=== PATIENT | male | born 1995 | race Caucasian/White ===

== ENCOUNTER 2017-10-30 22:33 | Emergency (ER) | payer MEDICAID, OTHER ==
[2017-10-30 23:27] VITALS: BP 119/50
[2017-10-30] MEDS ORDERED: TYLENOL PO ONE (23:28)
--- NOTE | 2017-10-31 04:17 | Emergency Department Report ---
Abscess Boil HPI - HPI Chief Complaint: Skin/Abscess/Foreign Body Stated Complaint: ABSCESS TO RT BUTOCKS Time Seen by Provider: 10/31/17 04:00 Duration: 3 Days Location: Sacral/Pilonidal Severity: Moderate History: Yes Purulent Drainage, Yes Previous History, No Fever, No Pain, No Numbness, No Foreign Body, No Insect Bite HPI: 22-year-old Citizen Of The [place] male comes in complaining of an abscess in between his right buttocks. He has noticed it for the last 3 days and reports that it feels very painful pressure increased pain with sitting. He reports that while being here he sat on the toilet and the abscess burst and fluid ran into the toilet. Patient reports that the pain has improved somewhat with the relief of the abscess. Home Medications: Previous Rx's Medication Instructions Recorded Last Taken Type Ibuprofen [Motrin 600 MG tab] 600 mg PO Q8H PRN #40 tablet 10/31/17 Unknown Rx Sulfamethoxazole/Trimethoprim 1 each PO BID #20 tablet 10/31/17 Unknown Rx [Bactrim DS TAB] Allergies/Adverse Reactions: Allergies Allergy/AdvReac Type Severity Reaction Status Date / Time No Known Allergies Allergy Verified 08/27/15 10:34 ED Review of Systems ROS: Stated complaint: ABSCESS TO RT BUTOCKS Other details as noted in HPI Constitutional: denies: chills, fever Skin: lesions ( on buttock) ED Past Medical Hx - Past Medical History Previous Medical History?: No - Surgical History Past Surgical History?: No - Social History Smoking Status: Current Every Day Smoker Substance Use Type: None - Medications Home Medications: Home Medications Medication Instructions Recorded Confirmed Last Taken Type Ibuprofen [Motrin 600 MG tab] 600 mg PO Q8H PRN #40 tablet 10/31/17 Unknown Rx Sulfamethoxazole/Trimethoprim 1 each PO BID #20 tablet 10/31/17 Unknown Rx [Bactrim DS TAB] ED Abscess Boil Physical Exam - Exam General: Vital signs noted. No distress. Alert and acting appropriately. Size: 2 cm Exam: Yes Tenderness, Yes Fluctuance, Yes Surrounding Cellulites/Erythema, Yes Normal Neurologic Exam, Yes Normal Circulation, No Lymphangitis, No Crepitation , No Heart Murmur I & D Note - I & D Note I & D Note: Not performed ED Course Vital Signs 06/26/18 06/26/18 23:24 23:29 Temperature 98.3 F Pulse Rate 73 Respiratory 18 18 Rate Blood Pressure 119/50 Critical care attestation.: If time is entered above; I have spent that time in minutes in the direct care of this critically ill patient, excluding procedure time. ED Medical Decision Making - Medical Decision Making Patient has been evaluated by this provider fast track. Patient was given a [place] for pain management. Abscess had artery started to drain so I did not need to incision and drained the abscess. Patient had purulent foul-smelling discharge on gauze. Discussed patient I will place him on antibiotics and pain medication. Discussed with patient that he should try using Dial soap and or chlorhexidine surgical scrub to bathe between his legs growing in but ox as well as on the arm to prevent overgrowth of bacteria. Discussed patient to complete antibiotics take pain medication and if symptoms persists or gets worse to follow up with a primary care provider. ED Disposition Clinical Impression: Abscess and cellulitis of gluteal region Disposition: DC-01 TO HOME OR SELFCARE Is pt being admited?: No Does the pt Need Aspirin: No Condition: Stable Instructions: Abscess (ED) Additional Instructions: Please use chlorhexidine surgical scrub to bathe at least twice a week as well as use Dial antibacterial soap. You can use warm compresses to the abscess area 4 times a day. As well as warm hot baths. Complete antibiotics as prescribed take her pain medication as needed and follow up with a primary care provider if symptoms persist or gets worse. Prescriptions: Ibuprofen [Motrin 600 MG tab] 600 mg PO Q8H PRN #40 tablet PRN Reason: Pain Sulfamethoxazole/Trimethoprim [Bactrim DS TAB] 1 each PO BID #20 tablet Referrals: MARZENA SALINAS [Other] - 3-5 Days Forms: Work/School Release Form(ED)
[2017-10-31] MEDS ORDERED: NORCO 5/325 PO ONE (04:56)
[2017-10-31] MEDS ORDERED: TYLENOL ONE (05:00)
[2017-10-31] MEDS ORDERED: NORCO 5/325 ONE (05:00)
== END 2017-10-31 05:23 | disposition home or self-care (01) ==
LOC: ED 22:33
DX: L02.31 Cutaneous abscess of buttock (principal); F17.200 Nicotine dependence, unspecified, uncomplicated
CPT/HCPCS: 99282

== ENCOUNTER 2017-11-06 05:00 | Emergency (ER) | payer SELFPAY ==
[2017-11-06 05:20] VITALS: BP 110/63
[2017-11-06 05:39] LABS: Basophils % (Auto) 0.3 % (0.0-1.8); Eosinophils % (Auto) 0.4 % (0.0-4.3); Hematocrit 44.3 % (35.5-45.6); Hemoglobin 14.9 gm/dl (11.8-15.2); Lymphocytes # (Auto) 1.4 K/mm3 (1.2-5.4); Lymphocytes % (Auto) 13.9 % (13.4-35.0); Mean Corpuscular HGB Conc 34 % (32-34); Mean Corpuscular Hemoglobin 30 pg (28-32); Mean Corpuscular Volume 90 fl (84-94); Monocytes # (Auto) 0.9 K/mm3 (0.0-0.8); Monocytes % (Auto) 8.8 % (0.0-7.3); Platelet Count 217 K/mm3 (140-440); Red Blood Count 4.94 M/mm3 (3.65-5.03)
[2017-11-06 06:06] LABS: Alanine Aminotransferase 26 units/L (7-56); Albumin 4.3 g/dL (3.9-5); BUN/Creatinine Ratio 14; Blood Urea Nitrogen 11 mg/dL (9-20); Calcium 9.5 mg/dL (8.4-10.2); Hemolysis Index 1
[2017-11-06 06:48] LABS: Bilirubin,Urine NEG (Negative); Blood,Urine NEG (Negative); Color,Urine Yellow (Yellow); Protein,Urine <15 mg/dL mg/dL (Negative); Urobilinogen,Urine < 2.0 mg/dL (<2.0); WBC,Urine < 1.0 /HPF (0.0-6.0)
--- NOTE | 2017-11-06 08:15 | Emergency Department Report ---
ED Abdominal Pain HPI - General Chief Complaint: Abdominal Pain Stated Complaint: ABDOMINAL PAIN Time Seen by Provider: 11/06/17 07:57 Source: patient, EMS Mode of arrival: Ambulatory Limitations: No Limitations - History of Present Illness Initial Comments: This is a 22 y.o. male that presents with sharp lower abdominal pain radiating to penis. Patient reports symptoms started yesterday at 1999. Patient reports pain be her worse with attempted to have have a bowel movement. Pain is sharp and radiating to right Flank and penis. Patient reports common into emergency room on October 30 for abscesses to buttock and started on Bactrim antibiotics. The abdominal pain started when he started antibiotics with nausea. He was having diarrhea. The last bowel movement was Sunday and it was watery with a weird smell. Denies chest pain, fever, frequency, urgency, dysuria, testicular pain or swelling. MD Complaint: abdominal pain -: Last night Location: diffuse Radiation: R flank Migration to: other (penile pain) Severity: moderate Severity scale (0 -10): 7 Quality: stabbing, sharp Consistency: intermittent Improves With: nothing Worsens With: bowel movement Context: recent antibiotic use Associated Symptoms: nausea, diarrhea. denies: vomiting, fever, chills, constipation, dysuria, hematemesis, hematochezia, melena, hematuria, anorexia, syncope - Related Data Previous Rx's Medication Instructions Recorded Last Taken Type Ibuprofen [Motrin 600 MG tab] 600 mg PO Q8H PRN #40 tablet 10/31/17 Unknown Rx Sulfamethoxazole/Trimethoprim 1 each PO BID #20 tablet 10/31/17 Unknown Rx [Bactrim DS TAB] Levofloxacin [Levaquin TAB] 500 mg PO QDAY #5 tablet 11/06/17 Unknown Rx Allergies Allergy/AdvReac Type Severity Reaction Status Date / Time No Known Allergies Allergy Verified 11/06/17 05:13 ED Review of Systems ROS: Stated complaint: ABDOMINAL PAIN Other details as noted in HPI Constitutional: denies: chills, fever Respiratory: denies: cough, shortness of breath, wheezing Cardiovascular: denies: chest pain, palpitations Gastrointestinal: abdominal pain, nausea. denies: vomiting, diarrhea, constipation Genitourinary: denies: urgency, dysuria, frequency, hematuria, discharge, testicular pain, testicular mass Musculoskeletal: back pain (right flank). denies: joint swelling, arthralgia Skin: denies: rash, lesions Neurological: denies: headache, weakness, numbness, paresthesias Psychiatric: denies: anxiety, depression ED Past Medical Hx - Past Medical History Additional medical history: gastritis - Surgical History Past Surgical History?: No - Social History Smoking Status: Current Some Day Smoker Substance Use Type: None - Medications Home Medications: Home Medications Medication Instructions Recorded Confirmed Last Taken Type Ibuprofen [Motrin 600 MG tab] 600 mg PO Q8H PRN #40 tablet 10/31/17 Unknown Rx Sulfamethoxazole/Trimethoprim 1 each PO BID #20 tablet 10/31/17 Unknown Rx [Bactrim DS TAB] Levofloxacin [Levaquin TAB] 500 mg PO QDAY #5 tablet 11/06/17 Unknown Rx ED Physical Exam - General Limitations: No Limitations General appearance: alert, in no apparent distress - Respiratory Respiratory exam: Present: normal lung sounds bilaterally. Absent: respiratory distress - Cardiovascular Cardiovascular Exam: Present: regular rate, normal rhythm. Absent: systolic murmur, diastolic murmur, rubs, gallop - GI/Abdominal GI/Abdominal exam: Present: soft, tenderness (RLQ, LLQ), normal bowel sounds. Absent: distended, guarding, rebound, rigid, organomegaly, mass, hernia - exam: Present: normal inspection, circumcision. Absent: testicular tenderness, urethral discharge, scrotal swelling, vertical testicular lie External exam: Present: normal external exam. Absent: erythema, swelling, lesions, lacerations, ecchymosis, bleeding - Neurological Exam Neurological exam: Present: alert, oriented X3 - Psychiatric Psychiatric exam: Present: normal affect, normal mood - Skin Skin exam: Present: warm, dry, intact, normal color. Absent: rash ED Course Vital Signs 11/06/17 05:13 Temperature 99.2 F Pulse Rate 78 Respiratory 18 Rate Blood Pressure 110/63 O2 Sat by Pulse 98 Oximetry ED Medical Decision Making - Lab Data Result diagrams: 11/06/17 05:20 11/06/17 05:20 - Radiology Data Radiology results: report reviewed CT ABDOMEN PELVIS WITHOUT CONTRAST: HISTORY: Diffuse abdominal pain. COMPARISON: 02/25/13. TECHNIQUE: Helical CT in 1.25mm intervals without IV contrast. Sagittal and coronal reconstructions. FINDINGS: Lung bases: Normal. Liver: Normal. Biliary system: Normal. Pancreas: Normal. Spleen: Normal. Kidneys/ureters/bladder: Normal. Adrenal glands: Normal. Aorta: Normal. Intestines: Normal. Appendix: Normal. Pelvic viscera: Normal. Ascites: None. Adenopathy: None. Musculoskeletal: Normal. IMPRESSION: Unremarkable CT scan of the abdomen and pelvis without contrast. - Medical Decision Making 22 y.o. male that presents with abdominal pain radiating to right flank and penis that started last night. Patient examined by me, slightly distressed. Given morphine 2 mg IM once. Vitals normal. Obtained CMP, CBC, UA, and CT of abdomen and pelvis. All labs unremarkable. CT read by radiologist and no acute findings. Diarrhea has resolved chronic, unable to get stool to r/o c- diff. Patient informed of results. Instructed to stop taking bactrim and start vancomycin 500 mg po daily for 5 days for gastritis and possible coverage of C. difficile. If diarrhea restarts take loperamide [id number] for symptom control. Discharged home. Follow up with [facility] in 48-72 hours. Critical care attestation.: If time is entered above; I have spent that time in minutes in the direct care of this critically ill patient, excluding procedure time. ED Disposition Clinical Impression: Abdominal pain, acute, generalized, Gastroenteritis Disposition: - TO HOME OR SELFCARE Is pt being admited?: No Does the pt Need Aspirin: No Condition: Stable Instructions: Gastroenteritis (ED), Acute Nausea and Vomiting (ED), Traveler's Diarrhea (ED) Additional Instructions: Frequent hand washing is important to reduce spread. Prompt disinfection of contaminated surfaces with household chlorine bleach- based pediatric sports medicine specialist and washing of soiled clothing and bedding should be advised. If food or water is thought to be contaminated, it should be avoided. Increase fluid intake. Take loperamide [id number] if diarrhea restarts. Drinks high in sugars such as carbonated soft drinks, fruit juice, and highly sugared liquids should be avoided. Follow-up with a primary care provider [facility] in 2-3 days. Prescriptions: Levofloxacin [Levaquin TAB] 500 mg PO QDAY #5 tablet Referrals: [facility] [Outside] - 3-[address] [facility] [Outside] - 3-5 Days [facility] [Outside] - 3-5 Days Forms: Work/School Release Form(ED) Time of Disposition: 09:49 Print Language: CITIZEN OF [place]
--- NOTE | 2017-11-06 08:46 | Cat Scan Report ---
CT ABDOMEN PELVIS WITHOUT CONTRAST: HISTORY: Diffuse abdominal pain. COMPARISON: 02/25/13. TECHNIQUE: Helical CT in 1.25mm intervals without IV contrast. Sagittal and coronal reconstructions. FINDINGS: Lung bases: Normal. Liver: Normal. Biliary system: Normal. Pancreas: Normal. Spleen: Normal. Kidneys/ureters/bladder: Normal. Adrenal glands: Normal. Aorta: Normal. Intestines: Normal. Appendix: Normal. Pelvic viscera: Normal. Ascites: None. Adenopathy: None. Musculoskeletal: Normal. IMPRESSION: Unremarkable CT scan of the abdomen and pelvis without contrast.
[2017-11-06] MEDS ORDERED: MORPHINE IV ONE (09:03)
[2017-11-06] MEDS ORDERED: MORPHINE IM ONE (09:07)
== END 2017-11-06 09:53 | disposition home or self-care (01) ==
LOC: ED 05:00
DX: K52.9 Noninfective gastroenteritis and colitis, unspecified (principal); F17.200 Nicotine dependence, unspecified, uncomplicated
CPT/HCPCS: 36415; 74176; 80053; 81001; 85025; 96372; 99284; J2270

== ENCOUNTER 2018-08-28 23:03 | Emergency (ER) | payer OTHER ==
[2018-08-28 23:49] VITALS: BP 122/57
--- NOTE | 2018-08-29 00:28 | XRay Report ---
PROCEDURE: XR FOOT 2V LT TECHNIQUE: AP and lateral views of the left foot were submitted. HISTORY: pain and swelling left foot. COMPARISONS: None FINDINGS: There is no evidence of fracture, dislocation, or soft tissue injury. Along the posterior margin of t he distal metaphysis of the tibia is a small benign exostosis. IMPRESSION: No acute findings.. This document is electronically signed by Mario Gutierrez MD., August 29 2018 12:26:24 AM ET
--- NOTE | 2018-08-29 02:43 | Emergency Department Report ---
- General Chief complaint: Puncture Wound Stated complaint: LEFT FOOT DISCOLORED Source: patient Mode of arrival: Ambulatory Limitations: No Limitations - History of Present Illness Initial comments: This is a 23-year-old male Presents to the emergency room with possible foreign objects to left foot. Patient states he was walking inside of his sister's trailer on Sunday and stepped on a splinter. He attempted to remove but on successful. Patient states he can feel splinter below the skin. Patient states when he woke up the next morning in the bottom of his foot was swollen. He denies numbness or tingling, paresthesias, or weakness, redness or warmth to the area. complaint: foreign body Onset/Timin -: days(s) Tetanus Up to Date: no Location: L foot Severity: moderate Severity scale (0 -10): 6 Quality: aching Consistency: intermittent Improves with: none Worsens with: other (weight bearing) Context: none Associated symptoms: denies other symptoms Treatments Prior to Arrival: none - Related Data Previous Rx's Medication Instructions Recorded Last Taken Type Ibuprofen [Motrin 600 MG tab] 600 mg PO Q8H PRN #40 tablet 10/31/17 Unknown Rx Sulfamethoxazole/Trimethoprim 1 each PO BID #20 tablet 10/31/17 Unknown Rx [Bactrim DS TAB] levoFLOXacin [Levaquin TAB] 500 mg PO QDAY #5 tablet 11/06/17 Unknown Rx Sulfamethoxazole/Trimethoprim 1 each PO BID #14 tablet 08/29/18 Unknown Rx [Bactrim DS TAB] Allergies Allergy/AdvReac Type Severity Reaction Status Date / Time No Known Allergies Allergy Verified 11/06/17 05:13 Abscess Boil HPI - HPI Chief Complaint: Puncture Wound Stated Complaint: LEFT FOOT DISCOLORED Home Medications: Previous Rx's Medication Instructions Recorded Last Taken Type Ibuprofen [Motrin 600 MG tab] 600 mg PO Q8H PRN #40 tablet 10/31/17 Unknown Rx Sulfamethoxazole/Trimethoprim 1 each PO BID #20 tablet 10/31/17 Unknown Rx [Bactrim DS TAB] levoFLOXacin [Levaquin TAB] 500 mg PO QDAY #5 tablet 11/06/17 Unknown Rx Sulfamethoxazole/Trimethoprim 1 each PO BID #14 tablet 08/29/18 Unknown Rx [Bactrim DS TAB] Allergies/Adverse Reactions: Allergies Allergy/AdvReac Type Severity Reaction Status Date / Time No Known Allergies Allergy Verified 11/06/17 05:13 ED Review of Systems ROS: Stated complaint: LEFT FOOT DISCOLORED Other details as noted in HPI Constitutional: denies: chills, fever Respiratory: denies: cough, shortness of breath, wheezing Cardiovascular: denies: chest pain, palpitations Gastrointestinal: denies: abdominal pain, nausea, diarrhea Skin: lesions (sensation of foreign object in the left plantar foot). denies: rash Neurological: denies: headache, weakness, paresthesias Psychiatric: denies: anxiety, depression ED Past Medical Hx - Past Medical History Previous Medical History?: Yes Additional medical history: gastritis - Surgical History Past Surgical History?: No - Social History Smoking Status: Never Smoker Substance Use Type: None - Medications Home Medications: Home Medications Medication Instructions Recorded Confirmed Last Taken Type Ibuprofen [Motrin 600 MG tab] 600 mg PO Q8H PRN #40 tablet 10/31/17 Unknown Rx Sulfamethoxazole/Trimethoprim 1 each PO BID #20 tablet 10/31/17 Unknown Rx [Bactrim DS TAB] levoFLOXacin [Levaquin TAB] 500 mg PO QDAY #5 tablet 11/06/17 Unknown Rx Sulfamethoxazole/Trimethoprim 1 each PO BID #14 tablet 08/29/18 Unknown Rx [Bactrim DS TAB] ED Physical Exam - General Limitations: No Limitations General appearance: alert, in no apparent distress - Respiratory Respiratory exam: Present: normal lung sounds bilaterally. Absent: respiratory distress - Cardiovascular Cardiovascular Exam: Present: regular rate, normal rhythm. Absent: systolic murmur, diastolic murmur, rubs, gallop - GI/Abdominal GI/Abdominal exam: Present: soft, normal bowel sounds - Neurological Exam Neurological exam: Present: alert, oriented X3 - Psychiatric Psychiatric exam: Present: normal affect, normal mood - Skin Skin exam: Present: warm, dry, intact, normal color, other (palpable foreign object less than 1/2 cm over dorsal second metatarsal, mild swelling and erythema). Absent: rash ED Course Vital Signs 08/28/18 23:42 Temperature 98.5 F Pulse Rate 69 Respiratory 18 Rate Blood Pressure 122/57 O2 Sat by Pulse 99 Oximetry ED Medical Decision Making - Radiology Data Radiology results: report reviewed PROCEDURE: XR FOOT 2V LT TECHNIQUE: AP and lateral views of the left foot were submitted. HISTORY: pain and swelling left foot. COMPARISONS: None FINDINGS: There is no evidence of fracture, dislocation, or soft tissue injury. Along the posterior margin of the distal metaphysis of the tibia is a small benign exostosis. IMPRESSION: No acute findings.. - Medical Decision Making Patient examined by me. X-ray of left foot are obtained and report reviewed by myself. Patient is non-toxic appearing and stable. No acute findings on x-ray but foreign object on focal exam. To remove foreign object, The area was prepared and draped in the usual, sterile manner. The site was anesthetized with 2% lidocaine without epinephrine, 1 mL. A linear incision along the local skin lines was made and the splinter was removed with forceps. The wound was irrigated with normal saline 8 mL. Given Boostrix vaccine. Physical examination is susceptible of cellulites of left foot. Discharged home for outpatient treatment with bactrim. Discussed ER care plan with patient. Patient agreed with plan. F/U with PCP. Critical care attestation.: If time is entered above; I have spent that time in minutes in the direct care of this critically ill patient, excluding procedure time. ED Disposition Clinical Impression: Foreign body foot/toe, Cellulitis of foot Disposition: DC-01 TO HOME OR SELFCARE Is pt being admited?: No Does the pt Need Aspirin: No Condition: Stable Instructions: Cellulitis (ED), Soft Tissue Foreign Body (ED) Prescriptions: Sulfamethoxazole/Trimethoprim [Bactrim DS TAB] 1 each PO BID #14 tablet Referrals: [facility] [Outside] - 3-5 Days [facility] [Outside] - 3-5 Days [facility] [Outside] - 3-5 Days Forms: Work/School Release Form(ED) Time of Disposition: 03:25
[2018-08-29] MEDS ORDERED: BOOSTRIX IM ONE (03:05)
== END 2018-08-29 03:51 | disposition home or self-care (01) ==
LOC: ED 23:03
DX: S90.852A Superficial foreign body, left foot, initial encounter (principal); L03.116 Cellulitis of left lower limb; W45.8XXA Other foreign body or object entering through skin, initial encounter; Y93.89 Activity, other specified; Y92.89 Other specified places as the place of occurrence of the external cause; Y99.8 Other external cause status
CPT/HCPCS: 90471; 90715

== ENCOUNTER 2019-07-09 08:24 | Emergency (ER) | payer SELFPAY ==
[2019-07-09 08:32] VITALS: BP 129/87
--- NOTE | 2019-07-09 10:45 | Emergency Department Report ---
- General Chief Complaint: Upper Respiratory Infection Stated Complaint: THROAT, EYE AND THROAT PAIN Time Seen by Provider: 07/09/19 09:48 Source: patient Mode of arrival: Ambulatory Limitations: No Limitations - History of Present Illness MD Complaint: cough, rhinorrhea, nasal congestion -: Sudden Severity: mild Consistency: constant Improves With: nothing Worsens With: nothing Context: sick contacts Associated Symptoms: chills, rhinorrhea, nasal congestion, cough. denies: myalgias, abdominal pain, vomiting, diarrhea, right sweats, weight loss - Related Data Previous Rx's Medication Instructions Recorded Last Taken Type Ibuprofen [Motrin 600 MG tab] 600 mg PO Q8H PRN #40 tablet 10/31/17 Unknown Rx Sulfamethoxazole/Trimethoprim 1 each PO BID #20 tablet 10/31/17 Unknown Rx [Bactrim DS TAB] levoFLOXacin [Levaquin TAB] 500 mg PO QDAY #5 tablet 11/06/17 Unknown Rx Sulfamethoxazole/Trimethoprim 1 each PO BID #14 tablet 08/29/18 Unknown Rx [Bactrim DS TAB] Allergies Allergy/AdvReac Type Severity Reaction Status Date / Time No Known Allergies Allergy Verified 11/06/17 05:13 ED Review of Systems ROS: Stated complaint: THROAT, EYE AND THROAT PAIN Other details as noted in HPI Comment: All other systems reviewed and negative ED Past Medical Hx - Past Medical History Previous Medical History?: Yes Additional medical history: gastritis - Surgical History Past Surgical History?: No - Social History Smoking Status: Never Smoker Substance Use Type: None - Medications Home Medications: Home Medications Medication Instructions Recorded Confirmed Last Taken Type Ibuprofen [Motrin 600 MG tab] 600 mg PO Q8H PRN #40 tablet 10/31/17 Unknown Rx Sulfamethoxazole/Trimethoprim 1 each PO BID #20 tablet 10/31/17 Unknown Rx [Bactrim DS TAB] levoFLOXacin [Levaquin TAB] 500 mg PO QDAY #5 tablet 11/06/17 Unknown Rx Sulfamethoxazole/Trimethoprim 1 each PO BID #14 tablet 08/29/18 Unknown Rx [Bactrim DS TAB] ED Physical Exam - General Limitations: No Limitations General appearance: alert, in no apparent distress - Head Head exam: Present: atraumatic, normocephalic - Eye Eye exam: Present: normal appearance, PERRL Pupils: Present: normal accommodation - ENT ENT exam: Present: normal exam, normal orophraynx, mucous membranes moist - Neck Neck exam: Present: normal inspection, full ROM - Respiratory Respiratory exam: Present: normal lung sounds bilaterally. Absent: respiratory distress, wheezes, rales, rhonchi, chest wall tenderness, accessory muscle use - Cardiovascular Cardiovascular Exam: Present: regular rate, normal rhythm. Absent: systolic murmur, diastolic murmur, rubs, gallop - GI/Abdominal GI/Abdominal exam: Present: soft, normal bowel sounds - Rectal Rectal exam: Present: deferred - Extremities Exam Extremities exam: Present: normal inspection - Back Exam Back exam: Present: normal inspection - Neurological Exam Neurological exam: Present: alert, oriented X3 - Psychiatric Psychiatric exam: Present: normal affect, normal mood - Skin Skin exam: Present: warm, dry, intact, normal color. Absent: rash ED Course Vital Signs 07/09/19 08:29 Temperature 97.6 F Pulse Rate 65 Respiratory 18 Rate Blood Pressure 129/87 O2 Sat by Pulse 99 Oximetry Critical care attestation.: If time is entered above; I have spent that time in minutes in the direct care of this critically ill patient, excluding procedure time. ED Disposition Clinical Impression: URI (upper respiratory infection) Disposition: Z-07 MED SCREENING EXAM-LEFT Is pt being admited?: No Does the pt Need Aspirin: No Condition: Stable Instructions: Upper Respiratory Infection (ED) Additional Instructions: Please utilize [id number] anti-tussive medications and decongestants for your treatment. 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 Referrals: SARMAD SALMON MD [Primary Care Provider] - 3-5 Days ALISIA WOODS MD [Staff Physician] - 3-5 Days
== END 2019-07-09 11:05 | disposition left against medical advice (07) ==
LOC: ED 08:24
DX: R05 Cough (principal); R09.81 Nasal congestion; R09.89 Other specified symptoms and signs involving the circulatory and respiratory systems; Z79.1 Long term (current) use of non-steroidal anti-inflammatories (NSAID); Z79.899 Other long term (current) drug therapy
CPT/HCPCS: 99282

== ENCOUNTER 2020-08-21 01:14 | Emergency (ER) | payer SELFPAY ==
[2020-08-21 01:22] VITALS: BP 125/75
== END 2020-08-21 03:30 | disposition home or self-care (01) ==
LOC: ED 01:14
DX: M79.603 Pain in arm, unspecified (principal); Z53.21 Procedure and treatment not carried out due to patient leaving prior to being seen by health care provider

== ENCOUNTER 2021-02-24 14:24 | Emergency (ER) | payer SELFPAY ==
[2021-02-24] MEDS ORDERED: ACETAMINOPHEN 500 MG TAB PO STA (15:15)
[2021-02-24] MEDS ORDERED: IBUPROFEN 800 MG TAB PO STA (15:15)
[2021-02-24 15:34] VITALS: BP 116/80
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
== END 2021-02-24 16:54 | disposition home or self-care (01) ==
LOC: ED 14:24
DX: S09.90XA Unspecified injury of head, initial encounter (principal); F17.200 Nicotine dependence, unspecified, uncomplicated; Z72.89 Other problems related to lifestyle; Z79.899 Other long term (current) drug therapy; V87.7XXA Person injured in collision between other specified motor vehicles (traffic), initial encounter; Y93.89 Activity, other specified; Y92.488 Other paved roadways as the place of occurrence of the external cause; Y99.8 Other external cause status
CPT/HCPCS: 70450; 99284

== ENCOUNTER 2021-07-06 17:53 | Emergency (ER) | payer SELFPAY ==
--- NOTE | 2021-07-06 19:03 | Emergency Department Report ---
ED Chest Pain HPI - General Chief Complaint: Chest Pain Stated Complaint: LEFT CP/ARM/NECK Time Seen by Provider: 07/06/21 18:53 Source: patient Mode of arrival: Ambulatory Limitations: No Limitations - History of Present Illness Initial Comments: This is a 26-year-old male presents to the emergency department with complaint of a 3-day history of sharp intermittent midsternal to left-sided chest pain with some radiation to the shoulder, left armpit, and left side of the neck. He denies any fever, shortness of breath, back pain, lower extremity swelling, nausea, vomiting or diaphoresis. He denies any past medical history. He is a tobacco smoker. He has not taken anything for symptoms prior to presentation. The pain worsens when he is moving his left arm at the shoulder. No sick contacts at home. He denies any family history of early AR. - Related Data Previous Rx's Medication Instructions Recorded Last Taken Type Sulfamethoxazole/Trimethoprim 1 each PO BID #20 tablet 10/31/17 Unknown Rx [Bactrim DS TAB] levoFLOXacin [Levaquin TAB] 500 mg PO QDAY #5 tablet 11/06/17 Unknown Rx Sulfamethoxazole/Trimethoprim 1 each PO BID #14 tablet 08/29/18 Unknown Rx [Bactrim DS TAB] Naproxen [Naprosyn] 500 mg PO Q12H PRN #30 tablet 10/08/19 Unknown Rx Ketorolac [Toradol] 10 mg PO Q6H PRN #10 tablet 08/21/20 Unknown Rx Naproxen [Naprosyn] 500 mg PO BID PRN #20 tablet 02/24/21 Unknown Rx methocarbamoL [Methocarbamol] 750 - 1,500 mg PO TID PRN #20 02/24/21 Unknown Rx tablet Cyclobenzaprine [Flexeril 10 MG 10 mg PO Q8H PRN #12 tablet 07/06/21 Unknown Rx TAB] Ibuprofen [Motrin 600 MG tab] 600 mg PO Q8H PRN #20 tablet 07/06/21 Unknown Rx Allergies Allergy/AdvReac Type Severity Reaction Status Date / Time No Known Allergies Allergy Verified 11/06/17 05:13 Heart Score - HEART Score History: Slightly suspicious EKG: Normal Age: < 45 Risk factors: 1-2 risk factors Troponin: < normal limit HEART Score: 1 - EKG Read Time Time EKG Completed: 18:05 EKG Read Time: 18:09 - Critical Actions Critical Actions: 0-3 pts:0.9-1.7%risk of adverse cardiac event.Candidate for discharge ED Review of Systems ROS: Stated complaint: LEFT CP/ARM/NECK Other details as noted in HPI Comment: All other systems reviewed and negative Constitutional: denies: chills, fever Eyes: denies: eye pain, vision change ENT: denies: ear pain, throat pain Respiratory: denies: cough, shortness of breath Cardiovascular: chest pain. denies: palpitations Gastrointestinal: denies: abdominal pain, vomiting Genitourinary: denies: dysuria, discharge Musculoskeletal: arthralgia, myalgia. denies: back pain Skin: denies: rash, lesions Neurological: denies: headache, weakness ED Past Medical Hx - Past Medical History Additional medical history: gastritis - Social History Smoking Status: Current Every Day Smoker Substance Use Type: Alcohol - Medications Home Medications: Home Medications Medication Instructions Recorded Confirmed Last Taken Type Sulfamethoxazole/Trimethoprim 1 each PO BID #20 tablet 10/31/17 Unknown Rx [Bactrim DS TAB] levoFLOXacin [Levaquin TAB] 500 mg PO QDAY #5 tablet 11/06/17 Unknown Rx Sulfamethoxazole/Trimethoprim 1 each PO BID #14 tablet 08/29/18 Unknown Rx [Bactrim DS TAB] Naproxen [Naprosyn] 500 mg PO Q12H PRN #30 tablet 10/08/19 Unknown Rx Ketorolac [Toradol] 10 mg PO Q6H PRN #10 tablet 08/21/20 Unknown Rx Naproxen [Naprosyn] 500 mg PO BID PRN #20 tablet 02/24/21 Unknown Rx methocarbamoL [Methocarbamol] 750 - 1,500 mg PO TID PRN #20 02/24/21 Unknown Rx tablet Cyclobenzaprine [Flexeril 10 MG 10 mg PO Q8H PRN #12 tablet 07/06/21 Unknown Rx TAB] Ibuprofen [Motrin 600 MG tab] 600 mg PO Q8H PRN #20 tablet 07/06/21 Unknown Rx ED Physical Exam - General Limitations: No Limitations - Other Other exam information: GENERAL: The patient is well-developed well-nourished. HENT: Normocephalic. Atraumatic. Patient has moist mucous membranes. EYES: Extraocular motions are intact. NECK: Supple. Trachea is midline. CHEST/LUNGS: Clear to auscultation. There is no respiratory distress noted. HEART/CARDIOVASCULAR: Regular. There is no tachycardia. There is no murmur. ABDOMEN: Abdomen is soft, nontender. Patient has normal bowel sounds. There is no abdominal distention. SKIN: Skin is warm and dry. NEURO: The patient is awake, alert, and oriented. The patient is cooperative. The patient has no focal neurologic deficits. Normal speech. MUSCULOSKELETAL: There is some reproducible tenderness to palpation within the left axilla, and side of the left shoulder. There is no limitation range of motion. Radial pulse +2/4 and capillary refill less than 2 seconds to the affected left upper extremity. ED Course Vital Signs 07/06/21 07/06/21 07/06/21 17:58 20:10 20:21 Temperature 98.3 F 98.5 F Pulse Rate 77 78 Respiratory 16 16 17 Rate Blood Pressure 134/66 137/67 [Left] O2 Sat by Pulse 98 100 Oximetry GERSON score - Gerson Score Age > 65: (0) No Aspirin use within the Past 7 Days: (0) No 3 or more CAD Risk Factors: (0) No 2 or more Angina events in past 24 hrs: (0) No Known CAD with more than 50% Stenosis: (0) No Elevated Cardiac Markers: (0) No ST Deviation Greater than 0.5mm: (0) No GERSON Score: 0 ED Medical Decision Making - Lab Data Result diagrams: 07/06/21 19:01 07/06/21 19:01 Lab Results 07/06/21 07/06/21 Range/Units 19:01 19:01 WBC 7.8 (4.5-11.0) K/mm3 RBC 4.53 (3.65-5.03) M/mm3 Hgb 13.8 (11.8-15.2) gm/dl Hct 41.0 (35.5-45.6) % MCV 91 (84-94) fl MCH 31 (28-32) pg MCHC 34 (32-34) % RDW 14.3 (13.2-15.2) % Plt Count 213 (140-440) K/mm3 Lymph % (Auto) 25.7 (13.4-35.0) % Pope % (Auto) 8.8 H (0.0-7.3) % Eos % (Auto) 3.0 (0.0-4.3) % Baso % (Auto) 0.8 (0.0-1.8) % Lymph # (Auto) 2.0 (1.2-5.4) K/mm3 Pope # (Auto) 0.7 (0.0-0.8) K/mm3 Eos # (Auto) 0.2 (0.0-0.4) K/mm3 Baso # (Auto) 0.1 (0.0-0.1) K/mm3 Seg Neutrophils % 61.7 (40.0-70.0) % Seg Neutrophils # 4.8 (1.8-7.7) K/mm3 Sodium 137 (137-145) mmol/L Potassium 4.0 (3.6-5.0) mmol/L Chloride 100.7 (98-107) mmol/L Carbon Dioxide 25 (22-30) mmol/L Anion Gap 15 mmol/L BUN 11 (9-20) mg/dL Creatinine 0.9 (0.8-1.3) mg/dL Estimated GFR > 60 ml/min BUN/Creatinine Ratio 12 % Glucose 98 (75-100) mg/dL Calcium 9.3 (8.4-10.2) mg/dL Troponin T < 0.010 (0.00-0.029) ng/mL - EKG Data -: EKG Interpreted by Me EKG shows normal: sinus rhythm (PACs), axis, intervals, QRS complexes, ST-T waves Rate: normal - EKG Data When compared to previous EKG there are: previous EKG unavailable Interpretation: normal EKG - Radiology Data Radiology results: image reviewed interpreted by me: Chest x-ray does not show any acute process. There are no pleural effusions, obvious pneumonia and there is no pneumothorax. No widened mediastinum. - Medical Decision Making This patient presents with a few days of some left-sided chest pain that radiates to the left axilla, left shoulder and left side of the neck. On examination his heart and lung sounds are normal to auscultation and he does not appear in any respiratory or acute distress. EKG does not have any morphology consistent with ST elevation myocardial infarction. Chest x-ray does not show any pneumonia, pleural effusions, pneumothorax, widened mediastinum, or any other acute process. Labs have been unremarkable including CBC, metabolic panel, and a negative troponin. Vital signs have been reassuring throughout his ED course including being afebrile. Patient was given a shot of Toradol. He is low on the heart and GERSON score. He is low on the Wells score criteria and negative on the pulmonary embolism rule out criteria. For all these reasons he appears safe for discharge home at this time. He has been given a prescription for ibuprofen and a muscle relaxer. He has been given an outpatient referral for cardiology and an orthopedist. Critical Care Time: No Critical care attestation.: If time is entered above; I have spent that time in minutes in the direct care of this critically ill patient, excluding procedure time. ED Disposition Clinical Impression: Chest pain Qualifiers: Chest pain type: unspecified Qualified Code(s): R07.9 - Chest pain, unspecified Left shoulder pain Qualifiers: Chronicity: unspecified Qualified Code(s): M25.512 - Pain in left shoulder Disposition: 01 HOME / SELF CARE / HOMELESS Is pt being admited?: No Condition: Stable Instructions: Shoulder Pain, [id number], Nonspecific Chest Pain, Adult Additional Instructions: Please follow-up with a primary care physician in the next few days. I have given you a referral for a local hydration plant operator, Dr. Farnsworth, to follow-up regarding your chest pains. I have given you a referral for a local orthopedist, Dr. Segura, to follow-up regarding your left shoulder pain. You have been prescribed a medication that is sedating and therefore should not be taken prior to driving, working, and responsible for children and in no way should be mixed with alcohol of any quantity. Return to the emergency department with any worsening of your symptoms, new or concerning symptoms not addressed during this current emergency department visit, or with any acute distress. Prescriptions: Cyclobenzaprine [Flexeril 10 MG TAB] 10 mg PO Q8H PRN #12 tablet PRN Reason: Muscle Spasm Ibuprofen [Motrin 600 MG tab] 600 mg PO Q8H PRN #20 tablet PRN Reason: Pain Referrals: PRIMARY CAREMD [Primary Care Provider] - 3-5 Days RENETTA SEGURA MD [Staff Physician] - 3-5 Days MANAS FARNSWORTH MD [Staff Physician] - 3-5 Days Time of Disposition: 20:15
--- NOTE | 2021-07-06 19:17 | XRay Report ---
CHEST 2 VIEWS INDICATION / CLINICAL INFORMATION: CP. COMPARISON: None available. FINDINGS: SUPPORT DEVICES: None. HEART / MEDIASTINUM: No significant abnormality. LUNGS / PLEURA: No significant pulmonary or pleural abnormality. No pneumothorax. ADDITIONAL FINDINGS: No significant additional findings. IMPRESSION: 1. No acute findings. Signer Name: Jermaine Mcarthur MD Signed: 07/06/2021 7:13 PM Workstation Name: [id number]
[2021-07-06 19:24] LABS: Basophils # (Auto) 0.1 K/mm3 (0.0-0.1); Basophils % (Auto) 0.8 % (0.0-1.8); Eosinophils # (Auto) 0.2 K/mm3 (0.0-0.4); Hemoglobin 13.8 gm/dl (11.8-15.2); Lymphocytes % (Auto) 25.7 % (13.4-35.0); Mean Corpuscular HGB Conc 34 % (32-34); Mean Corpuscular Volume 91 fl (84-94); Monocytes # (Auto) 0.7 K/mm3 (0.0-0.8); Monocytes % (Auto) 8.8 % (0.0-7.3); Platelet Count 213 K/mm3 (140-440); Red Blood Count 4.53 M/mm3 (3.65-5.03); Red Cell Distribution Width 14.3 % (13.2-15.2)
[2021-07-06 19:33] LABS: BUN/Creatinine Ratio 12; Blood Urea Nitrogen 11 mg/dL (9-20); Calcium 9.3 mg/dL (8.4-10.2); Hemolysis Index 21
[2021-07-06] MEDS ORDERED: KETOROLAC 30 MG/1 ML INJ IM ONE (19:40)
[2021-07-06 20:22] VITALS: BP 137/67
--- NOTE | 2021-07-07 13:26 | Electrocardiograph Report ---
[facility] Test Date: 2021-07-06 Test Time: 18:05:42 Pat Name: MAURY ANDERSON Department: Room: Gender: M Yacht Hand: HARVEY : 1995 Requested By: ALYSHA DENNIS Order Number: [id number] Reading MD: Marcial Almaraz Measurements Intervals [place] Rate: 63 P: 51 HI: 143 QRS: 34 QRSD: 107 T: 42 QT: 375 QTc: 379 Interpretive Statements Sinus arrhythmia Otherwise normal ECG No previous ECG available for comparison Electronically Signed On 07-07-2021 13:26:23 EST by Marcial Almaraz
== END 2021-07-06 20:21 | disposition home or self-care (01) ==
LOC: ED 17:53
DX: R07.9 Chest pain, unspecified (principal); M25.512 Pain in left shoulder; F17.200 Nicotine dependence, unspecified, uncomplicated; F10.20 Alcohol dependence, uncomplicated
CPT/HCPCS: 36415; 71046; 80048; 84484; 85025; 93005; 93010; 96372; 99283; J1885

== ENCOUNTER 2021-09-29 19:40 | Emergency (ER) | payer SELFPAY ==
[2021-09-29 20:45] VITALS: BP 130/71
== END 2021-09-29 23:50 ==
LOC: ED 19:40
DX: R50.9 Fever, unspecified (principal); R11.10 Vomiting, unspecified; Z53.21 Procedure and treatment not carried out due to patient leaving prior to being seen by health care provider
CPT/HCPCS: 93005

== ENCOUNTER 2021-09-30 14:04 | Emergency (ER) | payer SELFPAY ==
[2021-09-30 15:41] VITALS: BP 122/67
--- NOTE | 2021-09-30 16:13 | Cat Scan Report ---
CT ABDOMEN AND PELVIS WITHOUT CONTRAST HISTORY: pain. Generalized lower abdominal pain with nausea and vomiting for the past 2 days COMPARISON: CT abdomen/pelvis from 10/08/2019 TECHNIQUE: CT images of the abdomen and pelvis were obtained without administration of intravenous co ntrast. All CT scans at this location are performed using CT dose reduction for ALARA by means of au tomated exposure control. FINDINGS: Lungs/bones: Lung bases are clear. No acute osseous abnormality identified. Abdomen/pelvis: The liver, gallbladder, spleen, pancreas, adrenals, kidneys, and proximal GI tract a ppear unremarkable. Urinary bladder and prostate are normal with no pelvic free fluid. No acute colonic abnormality ident ified. The appendix is normal, as is the terminal ileum. IMPRESSION: 1. No acute abnormality. Signer Name: Javad Holt MD Signed: 09/30/2021 4:09 PM Workstation Name: [id number]
[2021-09-30 16:37] LABS: Bacteria,Urine 2+ /HPF (Negative); Bilirubin,Urine NEG (Negative); Blood,Urine SM (Negative); Color,Urine Yellow (Yellow); Mucus,Urine FEW /HPF
[2021-09-30 16:38] LABS: WBC,Urine < 1.0 /HPF (0.0-6.0)
[2021-09-30 17:42] LABS: Alanine Aminotransferase 32 units/L (7-56); BUN/Creatinine Ratio 9; Blood Urea Nitrogen 9 mg/dL (9-20); Calcium 9.5 mg/dL (8.4-10.2); Hemolysis Index 6
[2021-09-30 17:52] LABS: Hematocrit 45.1 % (35.5-45.6); Hemoglobin 15.6 gm/dl (11.8-15.2); Mean Corpuscular HGB Conc 35 % (32-34); Mean Corpuscular Volume 89 fl (84-94); Platelet Count 183 K/mm3 (140-440); Red Blood Count 5.06 M/mm3 (3.65-5.03); Red Cell Distribution Width 13.5 % (13.2-15.2)
--- NOTE | 2021-09-30 17:56 | Ultrasound Report ---
Testicular ultrasound INDICATION: Pain FINDINGS: Right testicle measures 3.8 x 2.3 x 3.2 cm. Normal echotexture. Normal color Doppler flow. Epididymis appears normal. Left testicle measures 4.2 x 2.6 x 3.4 cm. Normal echotexture. Normal color Doppler flow. Epididymis appears normal. IMPRESSION: No acute findings are seen. Signer Name: Jermaine Mcarthur MD Signed: 09/30/2021 5:52 PM Workstation Name: [id number]
== END 2021-10-01 01:34 | disposition left against medical advice (07) ==
LOC: ED 14:04
DX: R50.9 Fever, unspecified (principal); R11.10 Vomiting, unspecified; Z53.21 Procedure and treatment not carried out due to patient leaving prior to being seen by health care provider
CPT/HCPCS: 36415; 74176; 76870; 80053; 81001; 83690; 85027; 93975